=== PATIENT | male | born 1950 | race Caucasian/White ===

== ENCOUNTER 2016-09-24 19:31 | Observation (INO) | payer MEDICARE, MEDICAID ==
[~2016-09-24] VITALS: Ht 185.4 cm; Wt 99.1 kg
--- OUTSIDE RECORDS SUMMARY | 2016-09-24 19:39 | XMS REPORT ---
Author Author AKILAH ZULETA [facility] Address [address] [place] [address] Care Team Providers Care Computer Numerical Control Machinist Name Role Phone AKILAH ZULETA Unavailable PROBLEMS Type Condition ICD9-CM Code [id number]-ID Code Onset Dates Condition Status SNOMED Code Problem Spasm of muscle 728.85 Active 64937075 Problem Urinary tract infection, site not specified 599.0 Active 98288557 Problem Lumbago 724.2 Active 538799159 Problem Dental examination V72.2 Active 11594933 Problem Chronic hepatitis C without mention of hepatic coma 070.54 Active 087629304 Problem Undiagnosed cardiac murmurs 785.2 Active 212083535 Problem Impotence of organic origin 607.84 Active 196695762 Problem Blood in stool 578.1 Active 414023604 Problem Unspecified anemia 285.9 Active 716078571 Problem Other abnormal blood chemistry 790.6 Active 072428007 Problem Hematuria, unspecified 599.70 Active 44350183 Problem Unspecified constipation 564.00 Active 29092754 ALLERGIES Unknown Allergies SOCIAL HISTORY No smoking Hx information available PLAN OF CARE VITAL SIGNS MEDICATIONS Unknown Medications RESULTS No Results PROCEDURES No Known procedures IMMUNIZATIONS No Known Immunizations
--- OUTSIDE RECORDS SUMMARY | 2016-09-24 19:40 | XMS REPORT | Continuity of Care Document ---
Author Author Formerly [facility], [facility] Address Unknown Phone Unavailable Allergies Medications Problems Date Dx Coded Attending Type Code Diagnosis Diagnosed By 04/08/2013 JULIA GONZALEZ MD V72.2 DENTAL EXAMINATION 04/08/2013 JULIA GONZALEZ MD V72.2 DENTAL EXAMINATION 04/08/2013 JULIA GONZALEZ MD V72.2 DENTAL EXAMINATION 05/17/2013 JULIA GONZALEZ MD 070.54 HEPATITIS C CHRONIC 05/17/2013 JULIA GONZALEZ MD 724.2 BACK PAIN, LOWER 05/17/2013 JULIA GONZALEZ MD 728.85 MUSCLE SPASM 05/17/2013 JULIA GONZALEZ MD 785.2 MURMURS, UNDIAGNOSED CARDIAC 05/17/2013 JULIA GONZALEZ MD 070.54 HEPATITIS C CHRONIC 05/17/2013 JULIA GONZALEZ MD 724.2 BACK PAIN, LOWER 05/17/2013 JULIA GONZALEZ MD 728.85 MUSCLE SPASM 05/17/2013 JULIA GONZALEZ MD 785.2 MURMURS, UNDIAGNOSED CARDIAC 05/17/2013 JULIA GONZALEZ MD 070.54 HEPATITIS C CHRONIC 05/17/2013 JULIA GONZALEZ MD 724.2 BACK PAIN, LOWER 05/17/2013 JULIA GONZALEZ MD 728.85 MUSCLE SPASM 05/17/2013 JULIA GONZALEZ MD 785.2 MURMURS, UNDIAGNOSED CARDIAC 06/16/2013 JULIA GONZALEZ MD 285.9 ANEMIA 06/16/2013 JULIA GONZALEZ MD 564.00 CONSTIPATION 06/16/2013 JULIA GONZALEZ MD 578.1 HEMATOCHEZIA 06/16/2013 JULIA GONZALEZ MD 599.0 URINARY TRACT INFECTION 06/16/2013 JULIA GONZALEZ MD 599.70 HEMATURIA 06/16/2013 JULIA GONZALEZ MD 790.6 LFT (LIVER FUNCTION TEST) ABNORMAL 06/16/2013 JULIA GONZALEZ MD 285.9 ANEMIA 06/16/2013 JULIA GONZALEZ MD 564.00 CONSTIPATION 06/16/2013 JULIA GONZALEZ MD 578.1 HEMATOCHEZIA 06/16/2013 JULIA GONZALEZ MD 599.0 URINARY TRACT INFECTION 06/16/2013 JULIA GONZALEZ MD 599.70 HEMATURIA 06/16/2013 JULIA GONZALEZ MD 790.6 LFT (LIVER FUNCTION TEST) ABNORMAL 09/13/2013 JULIA GONZALEZ MD 607.84 IMPOTENCE OF ORGANIC ORIGIN Procedures Code [place] [address] ROUTINE VENIPUNCTURE 06/14/2013 37902 UA LONG DIP 06/14 48790 CBC 06/14/2013 46144 CMP 06/14/2013 05966 LIPID PANEL 06/14 2448908 GFR CALC (RESULT ONLY) 06/14/2013 69097 UA LONG DIP 06/16 93181 CULTURE URINE 07/2013 Results Encounters ACCT No. Visit Date/Time Discharge Status Pt. Type Provider Facility Loc./Unit Complaint [id number] 09/13/2013 13:19:00 09/13/2013 23: 59:59 CLS Outpatient JULIA GONZALEZ MD [id number] 06/16/2013 08:41:00 06/16/2013 23: 59:59 CLS Outpatient JULIA GONZALEZ MD [id number] 05/17/2013 10:47:00 05/17/2013 23: 59:59 CLS Outpatient JULIA GONZALEZ MD
[2016-09-24] MEDS ORDERED: FURO-124 PO (20:09)
[2016-09-24] MEDS ORDERED: POTA-53 PO (20:09)
--- NOTE | 2016-09-24 20:16 | Diagnostic Imaging Report ---
INDICATION: Abdominal pain. EXAMINATION: Single view of the chest was obtained. FINDINGS: There is cardiomegaly. There is mild venous congestion. There is pleural effusion or pneumothorax. Mediastinum is unremarkable. IMPRESSION: Cardiomegaly and mild central venous congestion. Dictated by: Dictated on workstation # [id number]
--- NOTE | 2016-09-24 20:27 | ED General ---
General Chief Complaint: Abdominal/GI Problems Stated Complaint: ABD PAIN/WEAKNESS Nursing Triage Note: PT CO OF TIGHTNESS AND ABD DISCOMFORT, PT HAS HX HEP C, PT HAS HX CIRRHOSIS OF LIVER. PT STATES IS HAVING BLACK LOOSE STOOLS YESTERDAY AND TODAY. STATES FEEL VERY WEAK Nursing Sepsis Screen: Possible Sepsis Risk Source of Information: Patient Exam Limitations: No Limitations History of Present Illness Time Seen by Provider: 19:41 Initial Comments here with report of black watery stools that started yesterday. Increasing weakness. Also complains of increasing abdominal girth and tightness. Does have history of hepatitis C and is on medication for this. Reports fever yesterday and had low-grade fever on arrival here today. Does have history of anemia. Follows with [facility]. Denies vomiting blood. Does report some nausea. Timing/Duration: 1-2 Days, Getting Worse Severity: Moderate Modifying Factors: improves with Rest Associated Systoms: No Chest Pain, No Cough, Fever/Chills, Loss of Appetite, Shortness of Air, Weakness Allergies and Home Medications Allergies Coded Allergies: No Known Drug Allergies (Unverified , 09/24/16) Home Medications Furosemide 40 Mg Tablet, 40 MG PO DAILY, (Reported) Potassium Chloride 20 Meq Tablet.er, 20 MEQ PO DAILY, (Reported) Constitutional: see HPI, No chills, fever, malaise, weakness EENTM: no symptoms reported Respiratory: see HPI, short of breath, No wheezing Cardiovascular: No chest pain, No edema Gastrointestinal: see HPI, abdominal pain, loss of appetite, nausea Genitourinary: no symptoms reported Musculoskeletal: no symptoms reported Skin: no symptoms reported, No change in color, No lesions Psychiatric/Neurological: See HPI, Denies Tremors, Weakness Hematologic/Lymphatic: See HPI All Other Systems Reviewed Negative Unless Noted: Yes Past Dmljkue-Phgjpp-Qyxbwc Hx Patient Social History Alcohol Use: Denies Use Recreational Drug Use: No Smoking Status: Never a Smoker Recent Foreign Travel: No Contact w/Someone Who Travel: No Recent Infectious Disease Expo: No Surgeries HX Surgeries: Yes Surgeries: Orthopedic Respiratory Hx Respiratory Disorders: No Cardiovascular Hx Cardiac Disorders: No Neurological Hx Neurological Disorders: No Genitourinary Hx Genitourinary Disorders: No Gastrointestinal Hx Gastrointestinal Disorders: Yes Gastrointestinal Disorders: Liver Disease/Jaundice, Hepatitis Musculoskeletal Hx Musculoskeletal Disorders: No Endocrine Hx Endocrine Disorders: No Psychosocial Hx Psychiatric Problems: No Reviewed Nursing Assessment Reviewed/Agree w Nursing PMH: Yes Family Medical History Significant Family History: No Pertinent Family Hx Physical Exam-Suspected Sepsis Physical Exam Vital Signs Vital Sign - Last 12Hours 09/24/16 19:55 Temp 99.8 Pulse 92 Resp 18 B/P (MAP) 114/82 Pulse Ox 99 Capillary Refill : Less Than 3 Seconds Blood Pressure Mean: 93 General Appearance: No Apparent Distress, Chronically ill HEENT: PERRL/EOMI, Pharynx Normal, No Scleral Icterus (L), No Scleral Icterus ( R) Neck: Non Tender, Supple Respiratory: No Accessory Muscle Use, Crackles (bilateral bases) Cardiovascular: No Murmur, Tachycardia Gastrointestinal: Soft, Distended, Tenderness (very mild diffuse tenderness) Rectal: Normal Rectal Tone, Heme Negative Stool, Black Stool Back: Normal Inspection, No CVA Tenderness, No Vertebral Tenderness Extremity: Normal Capillary Refill, Normal Range of Motion, Non Tender Neurologic/Psychiatric: Alert, Oriented x3 Skin: normal color, warm/dry, No jaundice Focused Exam Lactic Acid Level Laboratory Tests Test 09/24/16 20:31 Lactic Acid Level 1.15 MMOL/L (0.50-2.00) Progress/Results/Core Measures Suspected Sepsis Recent Fever Within 48 Hours: Yes Infection Criteria Present: Suspected New Infection New/Unexplained Altered Menta: No Sepsis Screen: Possible Sepsis Risk Sepsis Diagnosis: SIRS Temperature:99.8 Pulse: 92 Respiratory Rate: 18 Laboratory Tests 09/24/16 19:55: White Blood Count 9.3 Blood Pressure 114 /82 Mean: 93 Laboratory Tests 09/24/16 19:55: Creatinine 0.78, INR Comment 1.4, Platelet Count 191, Total Bilirubin 1.0 Results/Orders Lab Results Laboratory Tests Test 09/24/16 19:55 09/24/16 20:31 09/24/16 20:40 Range/Units White Blood Count 9.3 4.3-11.0 10^3/uL Red Blood Count 3.85 L 4.35-5.85 10^6/uL Hemoglobin 12.1 L 13.3-17.7 G/DL Hematocrit 36 L 40-54 % Mean Corpuscular Volume 94 80-99 FL Mean Corpuscular Hemoglobin 31 25-34 PG Mean Corpuscular Hemoglobin Concent 34 32-36 G/DL Red Cell Distribution Width 15.5 H 10.0-14.5 % Platelet Count 191 130-400 10^3/uL Mean Platelet Volume 10.2 7.4-10.4 FL Neutrophils (%) (Auto) 45 42-75 % Lymphocytes (%) (Auto) 34 12-44 % Monocytes (%) (Auto) 15 H 0-12 % Eosinophils (%) (Auto) 3 0-10 % Basophils (%) (Auto) 2 0-10 % Neutrophils # (Auto) 4.2 1.8-7.8 X 10^3 Lymphocytes # (Auto) 3.2 1.0-4.0 X 10^3 Monocytes # (Auto) 1.4 H 0.0-1.0 X 10^3 Eosinophils # (Auto) 0.3 0.0-0.3 10^3/uL Basophils # (Auto) 0.2 H 0.0-0.1 10^3/uL Prothrombin Time 16.5 H 12.2-14.7 SEC INR Comment 1.4 0.8-1.4 Activated Partial Thromboplast Time 29 24-35 SEC Sodium Level 137 135-145 MMOL/L Potassium Level 4.1 3.6-5.0 MMOL/L Chloride Level 107 98-107 MMOL/L Carbon Dioxide Level 25 21-32 MMOL/L Anion Gap 5 5-14 MMOL/L Blood Urea Nitrogen 20 H 7-18 MG/DL Creatinine 0.78 0.60-1.30 MG/DL Estimat Glomerular Filtration Rate > 60 BUN/Creatinine Ratio 26 Glucose Level 130 H 70-105 MG/DL Calcium Level 8.7 8.5-10.1 MG/DL Total Bilirubin 1.0 0.1-1.0 MG/DL Aspartate Amino Transf (AST/SGOT) 60 H 5-34 U/L Alanine Aminotransferase (ALT/SGPT) 51 0-55 U/L Alkaline Phosphatase 153 H 40-136 U/L Ammonia 55 H 11-32 UMOL/L Total Protein 6.4 6.4-8.2 GM/DL Albumin 2.8 L 3.2-4.5 GM/DL Lactic Acid Level 1.15 0.50-2.00 MMOL/L Urine Color YELLOW Urine Clarity CLEAR Urine pH 5 5-9 Urine Specific [place] 1.025 H 1.016-1.022 Urine Protein NEGATIVE NEGATIVE Urine Glucose (UA) NEGATIVE NEGATIVE Urine Ketones NEGATIVE NEGATIVE Urine Nitrite NEGATIVE NEGATIVE Urine Bilirubin NEGATIVE NEGATIVE Urine Urobilinogen NORMAL NORMAL MG/DL Urine Leukocyte Esterase NEGATIVE NEGATIVE Urine RBC (Auto) NEGATIVE NEGATIVE Urine RBC RARE /HPF Urine WBC NONE /HPF Urine Crystals NONE /LPF Urine Bacteria NONE /HPF Urine Casts NONE /LPF Urine Mucus NEGATIVE /LPF Urine Culture Indicated NO My Orders Orders - DIEGO MAYORGA MD Cbc With Automated Diff (09/24/16 19:48) Comprehensive Metabolic Panel (09/24/16:48) Lactic Acid Analyzer (09/24/16:48) Blood Culture (09/24/16:48) Sputum Culture (09/24/16:48) Ua Culture If Indicated (09/24/16:48) Protime With Inr (09/24/16:48) Partial Thromboplastin Time (09/24/16:48) Chest 1 View, Ap/Pa Only (09/24/16:48) O2 (09/24/16:48) Saline Lock/Iv-Start (09/24/16:48) Saline Lock/Iv-Start (09/24/16 19:48) Vital Signs Adult Sepsis Patie Q1HR (09/24/16 19:48) Remove Rings In Anticipation O (09/24/16 19:48) Ammonia (09/24/16 19:48) Type And Screen (09/24/16 19:48) Vital Signs/I&O Vital Sign - Last 12Hours 09/24/16 19:55 Temp 99.8 Pulse 92 Resp 18 B/P (MAP) 114/82 Pulse Ox 99 Capillary Refill : Less Than 3 Seconds Blood Pressure Mean: 93 Progress Note : Progress Note seen and evaluated. I did speak with the patient's primary care physician on patient's arrival. IV, labs, chest x-ray, EKG, lactic acid, blood cultures and ammonia level ordered. Monitor patient.Hemoccult stool done by me which did show black stool but Hemoccult was negative.2114: I did discuss the case with Dr. Luisana Stewart. Patient will be admitted, inpatient status for hepatic encephalopathy. Patient does have abdominal ascites and there is concern about the need for paracentesis. This will be evaluated in the morning. We will initiate lactulose treatment. Patient has his home meds including his hepatitis C medication. He will likely need to take his own hepatitis C medication and orders were written for pharmacy to verify for him to be old to take his home medicine. We will initiate lactulose treatment. All of findings and concerns were discussed with the patient and family who agree with plan. patient informed that he may be here for a few days and that he may need the paracentesis. Diagnostic Imaging Diagonstic Imaging: Xray Plain Films/CT/US/NM/MRI: chest Comments NAME: [facility] REC#: [id number] PT STATUS: REG ER : 1950 PHYSICIAN: DIEGO MAYORGA MD ADMIT DATE: 09/24/16/ER Signed Date of Exam: 09/24/16 CHEST 1 VIEW, AP/PA ONLY INDICATION: Abdominal pain. EXAMINATION: Single view of the chest was obtained. FINDINGS: There is cardiomegaly. There is mild venous congestion. There is pleural effusion or pneumothorax. Mediastinum is unremarkable. IMPRESSION: Cardiomegaly and mild central venous congestion. Dictated by: Dictated on workstation # [id number] Dict: 09/24/162003 Trans: 09/24/162017 Interpreted by: OLEGARIO CALLEJAS Electronically signed by: OLEGARIO CALLEJAS 09/24/162017 Departure Communication Time/Spoke to Admitting Phy: 21:15 Impression Impression: Primary Impression: Hepatic encephalopathy Additional Impressions: Ascites Qualified Codes: R18.8 - Other ascites Hepatitis C infection Qualified Codes: B17.10 - Acute hepatitis C without hepatic coma Disposition: ADMITTED INPATIENT Condition: Stable Decision to Admit Reason: Admit from ER (General) Decision to Admit/Date: Sep 24, 2016 Time/Decision to Admit Time: 21:15 Departure-Patient Inst. Referrals: LUISANA STEWART MD (PCP/Family) Primary Care Physician DIEGO MAYORGA MD Sep 24, 2016 20:27
[2016-09-24 20:34] LABS: ALANINE AMINOTRANSFERASE 51 U/L (0-55); ALBUMIN 2.8 GM/DL (3.2-4.5); ANION GAP 5 MMOL/L (5-14); ASPARTATE AMINO TRANSFERASE 60 U/L (5-34); BASOPHILS # (AUTO) 0.2 10^3/uL (0.0-0.1); BASOPHILS % (AUTO) 2 % (0-10); BLOOD UREA NITROGEN 20 MG/DL (7-18); BUN/CREATININE RATIO 26; CALCIUM 8.7 MG/DL (8.5-10.1); CARBON DIOXIDE 25 MMOL/L (21-32); CHLORIDE 107 MMOL/L (98-107); CREATININE SERUM 0.78 MG/DL (0.60-1.30); EOSINOPHILS # (AUTO) 0.3 10^3/uL (0.0-0.3); EOSINOPHILS % (AUTO) 3 % (0-10); GFR ESTIMATED > 60; GLUCOSE 130 MG/DL (70-105); INR 1.4 (0.8-1.4); LYMPHOCYTES # (AUTO) 3.2 X 10^3 (1.0-4.0); LYMPHOCYTES % (AUTO) 34 % (12-44); MEAN CORPUSCULAR HEMOGLOBIN 31 PG (25-34); MEAN CORPUSCULAR HGB CONC 34 G/DL (32-36); MEAN CORPUSCULAR VOLUME 94 FL (80-99); MEAN PLATELET VOLUME 10.2 FL (7.4-10.4); MONOCYTES # (AUTO) 1.4 X 10^3 (0.0-1.0); MONOCYTES % (AUTO) 15 % (0-12); NEUTROPHILS # (AUTO) 4.2 X 10^3 (1.8-7.8); NEUTROPHILS % (AUTO) 45 % (42-75); PLATELET COUNT 191 10^3/uL (130-400); POTASSIUM 4.1 MMOL/L (3.6-5.0); PROTHROMBIN TIME PATIENT 16.5 SEC (12.2-14.7); RED BLOOD COUNT 3.85 10^6/uL (4.35-5.85); RED CELL DISTRIBUTION WIDTH 15.5 % (10.0-14.5); SODIUM 137 MMOL/L (135-145); TOTAL PROTEIN 6.4 GM/DL (6.4-8.2); WHITE BLOOD COUNT 9.3 10^3/uL (4.3-11.0)
[2016-09-24 20:53] LABS: AMMONIA 55 UMOL/L (11-32)
[2016-09-24 20:57] LABS: BILIRUBIN,URINE NEGATIVE (NEGATIVE); KETONES,URINE NEGATIVE (NEGATIVE); LEUKOCYTE ESTERASE ,URINE NEGATIVE (NEGATIVE); NITRITE,URINE NEGATIVE (NEGATIVE); PH,URINE 5 (5-9); PROTEIN,URINE NEGATIVE (NEGATIVE); UROBILINOGEN,URINE NORMAL (NORMAL)
[2016-09-24] MEDS ORDERED: LACTULOSE SYRUP 10GM/15ML (ENULOSE) 30ML UDC PO ONE (21:45)
--- OUTSIDE RECORDS SUMMARY | 2016-09-24 21:49 | XMS REPORT | Continuity of Care Document ---
Author Author Formerly [facility] Address Unknown Phone Unavailable Allergies Medications Problems [...] Procedures Code Description [place] [address] ROUTINE VENIPUNCTURE 06/14/2013 41565 UA LONG DIP 06/14 54976 CBC 06/14/2013 00866 CMP 06/14/2013 99310 LIPID PANEL 06/14 [id number] GFR CALC (RESULT ONLY) 06/14/2013 92130 UA LONG DIP 06/16 70314 CULTURE URINE 07/2013 Results Encounters ACCT No. Visit Date/Time Discharge Status Pt. Type Provider Facility Loc./Unit Complaint [id number] 09/13/2013 13:19:00 09/13/2013 23: 59:59 CLS Outpatient JULIA GONZALEZ MD [id number] 06/16/2013 08:41:00 06/16/2013 23: 59:59 CLS Outpatient JULIA GONZALEZ MD [id number] 05/17/2013 10:47:00 05/17/2013 23: 59:59 CLS Outpatient JULIA GONZALEZ MD
[2016-09-24] MEDS: LACTULOSE SYRUP 10GM/15ML (ENULOSE) 30ML UDC PO SCH (22:32)
[2016-09-25 00:30] VITALS: BP 127/69
[2016-09-25] MEDS ORDERED: ACETAMINOPHEN 500 MG TAB (TYLENOL) PO ONE (01:45)
[2016-09-25] MEDS ORDERED: PATIENT MAY USE OWN MEDS, ALL MC SCH (02:45)
[2016-09-25] MEDS ORDERED: SOFO1TAB PO (03:04)
[2016-09-25] MEDS ORDERED: DOXA2TAB PO (03:04)
[2016-09-25 04:42] VITALS: BP 120/63
[2016-09-25] MEDS ORDERED: KCL 20 MEQ TAB (K-DUR) PO SCH (07:00)
[2016-09-25] MEDS ORDERED: FUROSEMIDE 40 MG (LASIX) TAB PO SCH (07:00)
[2016-09-25 07:07] LABS: BASOPHILS # (AUTO) 0.1 10^3/uL (0.0-0.1); BASOPHILS % (AUTO) 1 % (0-10); EOSINOPHILS # (AUTO) 0.3 10^3/uL (0.0-0.3); EOSINOPHILS % (AUTO) 3 % (0-10); LYMPHOCYTES # (AUTO) 3.4 X 10^3 (1.0-4.0); LYMPHOCYTES % (AUTO) 42 % (12-44); MEAN CORPUSCULAR HEMOGLOBIN 32 PG (25-34); MEAN CORPUSCULAR HGB CONC 33 G/DL (32-36); MEAN CORPUSCULAR VOLUME 94 FL (80-99); MEAN PLATELET VOLUME 10.4 FL (7.4-10.4); MONOCYTES % (AUTO) 13 % (0-12); NEUTROPHILS # (AUTO) 3.3 X 10^3 (1.8-7.8); NEUTROPHILS % (AUTO) 41 % (42-75); PLATELET COUNT 168 10^3/uL (130-400); RED BLOOD COUNT 3.36 10^6/uL (4.35-5.85); RED CELL DISTRIBUTION WIDTH 15.5 % (10.0-14.5)
[2016-09-25 07:22] LABS: ALANINE AMINOTRANSFERASE 41 U/L (0-55); ALBUMIN 2.4 GM/DL (3.2-4.5); ANION GAP 8 MMOL/L (5-14); ASPARTATE AMINO TRANSFERASE 51 U/L (5-34); BLOOD UREA NITROGEN 20 MG/DL (7-18); BUN/CREATININE RATIO 28; CALCIUM 7.7 MG/DL (8.5-10.1); CARBON DIOXIDE 21 MMOL/L (21-32); CHLORIDE 109 MMOL/L (98-107); CREATININE SERUM 0.71 MG/DL (0.60-1.30); GFR ESTIMATED > 60; GLUCOSE 95 MG/DL (70-105); POTASSIUM 4.1 MMOL/L (3.6-5.0); SODIUM 138 MMOL/L (135-145); TOTAL PROTEIN 5.4 GM/DL (6.4-8.2)
[2016-09-25 08:00] VITALS: BP 125/69
[2016-09-25] MEDS: LACTULOSE SYRUP 10GM/15ML (ENULOSE) 30ML UDC PO SCH (08:41)
[2016-09-25] MEDS ORDERED: doxAzosin 2 MG (CARDURA) TAB PO SCH (09:00)
[2016-09-25 12:00] VITALS: BP 113/65
--- NOTE | 2016-09-25 12:10 | Diagnostic Imaging Report ---
PROCEDURE: US Abdomen, limited. TECHNIQUE: Multiple realtime grayscale images were obtained over the abdomen in various projections. INDICATION: Check for ascites. FINDINGS: The four quadrants are evaluated with no significant ascites seen. IMPRESSION: No significant amount of ascites is seen. Dictated by: Dictated on workstation # [id number]
[2016-09-25] MEDS ORDERED: morphine INJ 4 MG/ML 1 ML (VIAL/SYRINGE) IVP ONE (12:15)
--- NOTE | 2016-09-25 15:58 | History & Physicial (CHS) ---
HPI Attending Physician Luisana Stewart MD PCP Luisana Stewart MD Consult Date of Admission Sep 24, 2016 at 9:30 pm Home Medications Home Medications Reviewed patient Home Medication Reconciliation Form Allergies Coded Allergies: No Known Drug Allergies (Unverified , 09/24/16) [id number]-Ubftzf Hx Patient Social History Alcohol Use: Denies Use Recreational Drug Use: No Smoking Status: Never a Smoker Recent Foreign Travel: No Contact w/other who traveled: No Recent Hopitalizations: No Recent Infectious Disease Expo: No Physical Abuse Screen: No Sexual Abuse: No Immunizations Up To Date Date of Pneumonia Vaccine: Aug 14, 2016 Family Medical History Significant Family History: No Pertinent Family Hx Family History: Asthma DAUGHTER FH: bladder cancer 19 FATHER FH: colon cancer 19 MOTHER FH: throat cancer 19 FATHER Physical Exam-([facility]) Physical Exam Vital Signs VS - Last 72 Hours, by Label 09/24/16 09/24/16 09/24/16 09/24/16 19:55 21:49 22:00 22:26 Temp 99.8 Pulse 92 94 103 Resp 18 19 B/P (MAP) 114/82 Pulse Ox 99 99 97 O2 Delivery Room Air 09/25/16 09/25/16 09/25/16 09/25/16 00:30 01:00 01:30 01:44 Temp 100.6 101.7 101.7 Pulse 97 109 Resp 24 B/P (MAP) 127/69 Pulse Ox 97 O2 Delivery Room Air 09/25/16 09/25/16 09/25/16 09/25/16 02:55 02:55 04:42 07:33 Temp 99.6 99.6 99.0 Pulse 93 85 Resp 20 B/P (MAP) 120/63 Pulse Ox 95 O2 Delivery Room Air 09/25/16 09/25/16 09/25/16 08:00 12:00 13:19 Temp 99.0 97.2 Pulse 91 87 89 Resp 20 24 B/P (MAP) 125/69 113/65 Pulse Ox 97 97 O2 Delivery Room Air Room Air Capillary Refill : Less Than 3 Seconds Clinical Quality Measures DVT/VTE Risk/Contraindication: Risk Factor Score Per Nursin RFS Level Per Nursing on Admit: 2=Moderate LUISANA STEWART MD Sep 25, 2016 3:58 pm
[2016-09-25 16:00] VITALS: BP 112/60
[2016-09-25 20:00] VITALS: BP 113/64
[2016-09-26 00:30] VITALS: BP 119/63
[2016-09-26] MEDS ORDERED: ZOLPIDEM 5 MG (AMBIEN) TAB PO ONE (01:30)
[2016-09-26 04:50] VITALS: BP 103/59
[2016-09-26] MEDS ORDERED: KCL 20 MEQ TAB (K-DUR) PO SCH (07:00)
[2016-09-26] MEDS ORDERED: FUROSEMIDE 40 MG (LASIX) TAB PO SCH (07:00)
[2016-09-26 08:00] VITALS: BP 100/59
[2016-09-26] MEDS ORDERED: doxAzosin 2 MG (CARDURA) TAB PO SCH (09:00)
[2016-09-26] MEDS ORDERED: EPCLUSA PO SCH (09:00)
[2016-09-26 11:06] LABS: BASOPHILS # (AUTO) 0.1 10^3/uL (0.0-0.1); BASOPHILS % (AUTO) 1 % (0-10); EOSINOPHILS # (AUTO) 0.2 10^3/uL (0.0-0.3); EOSINOPHILS % (AUTO) 3 % (0-10); LYMPHOCYTES # (AUTO) 3.3 X 10^3 (1.0-4.0); LYMPHOCYTES % (AUTO) 49 % (12-44); MEAN CORPUSCULAR HEMOGLOBIN 32 PG (25-34); MEAN CORPUSCULAR HGB CONC 34 G/DL (32-36); MEAN CORPUSCULAR VOLUME 94 FL (80-99); MONOCYTES # (AUTO) 0.8 X 10^3 (0.0-1.0); MONOCYTES % (AUTO) 12 % (0-12); NEUTROPHILS # (AUTO) 2.4 X 10^3 (1.8-7.8); NEUTROPHILS % (AUTO) 36 % (42-75); PLATELET COUNT 145 10^3/uL (130-400); RED BLOOD COUNT 3.28 10^6/uL (4.35-5.85); RED CELL DISTRIBUTION WIDTH 15.3 % (10.0-14.5); WHITE BLOOD COUNT 6.7 10^3/uL (4.3-11.0)
[2016-09-26 11:40] LABS: BAND NEUTROPHILS 0 %; BASOPHILS % (MANUAL) 0 %; EOSINOPHILS % (MANUAL) 1 %; LYMPHOCYTES % (MANUAL) 38 %; NEUTROPHILS % (MANUAL) 37 %; REACTIVE LYMPHOCYTES 10 %
--- NOTE | 2016-09-26 12:13 | Discharge Instructions ---
Discharge [facility] Discharge Medications New, Converted or Re-Newed RX: Other Continued Medications: Furosemide (Lasix) 40 Mg Tablet 40 MG PO DAILY, TAB Potassium Chloride (K-Tab ER) 20 Meq Tablet.er 20 MEQ PO DAILY, TAB Sofosbuvir/Velpatasvir (Epclusa 400 mg-100 mg Tablet) 1 Each Tablet 1 TAB PO DAILY, TAB Activity & Diet Discharge Diet: Low Sodium Diet Activity as Tolerated: Yes Copy Copies To 1: LUISANA STEWART MD, JULIE A MD Sep 26, 2016 12:13 pm
== END 2016-09-26 14:30 | disposition other institution (70) ==
LOC: ER 19:36 → 4TH 21:30 → INTOOBSV 21:30
PROVIDERS: ADMIT Pediatrics; ATTEND Pediatrics
DX: K72.90 Hepatic failure, unspecified without coma (principal); B18.2 Chronic viral hepatitis C; R18.8 Other ascites; I51.7 Cardiomegaly; Z79.899 Other long term (current) drug therapy
CPT/HCPCS: 36415; 71010; 76705; 80053; 81000; 82140; 83605; 85007; 85025; 85027; 85610; 85730; 86850; 86900; 86901; 87040; 87077; G0378